=== PATIENT | male | born 1995 | race African-American/Black ===

== ENCOUNTER 2021-05-09 10:10 | Emergency (ER) | payer SELFPAY ==
--- NOTE | 2021-05-09 10:43 | EDM.PDOC ---
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, woke at 5:30a as usual, felt okay, he changed the diaper and gave a bottle to his son as he usual does, did not shower, says he felt weak and went to [facility] and drank OJ he came back to bedroom still feeling weak and "passed out", his fiancee awoke and came to his side, he was on the floor, says he felt okay, no pain, still lightheaded, no incontinence of B/B he got up but passed out again, he then ate a pancake, sausage and drank a Powerade that his fiancee prepared, as he was still tired he went and took a nap for an hour, when he woke up he still felt weak and came to walk-in clinic where Angela Ahuja redirected him to the ED no alcohol or street drugs no daily meds 3m ago in February he was living in [place] and driving [place] the border to work at a hospital in [place], he checked on his mother daily, she lives in [place], while at her house he had a similar syncopal episode, he was hospitalized for 3d at [facility], says he was told he had dehydration and was told to take a pill once a day which he thinks was some type of water pill. He has not continued to take this pill. No dx other dehydration apparently were made per pt. Pt reports there "is a hx of anemia in my family." - Related Data Allergies Allergy/AdvReac Type Severity Reaction Status Date / Time No Known Allergies Allergy Verified 05/09/21 10:31 Home Meds: Home Meds Multivitamin 1 tab PO DAILY 05/09/21 [History] ED ROS GENERAL - Review of Systems Review Of Systems: See Below Constitutional: Reports: No Symptoms HEENT: Reports: No Symptoms Respiratory: Reports: No Symptoms Cardiovascular: Reports: No Symptoms Endocrine: Reports: No Symptoms GI/Abdominal: Reports: No Symptoms : Reports: No Symptoms Musculoskeletal: Reports: No Symptoms Skin: Reports: No Symptoms Neurological: Reports: Dizziness, Weakness, Other (lightheaded) Psychiatric: Reports: No Symptoms Hematologic/Lymphatic: Reports: No Symptoms Immunologic: Reports: No Symptoms - Physical Exam Exam: See Below Exam Limited By: No Limitations General Appearance: Alert, WD/WN, No Apparent Distress, Other (alert, pleasant, not postictal, ambulates without difficulty, ormal speech) Eye Exam: Bilateral Eye: EOMI, PERRL Ears: Hearing Grossly Normal Nose: Normal Inspection, Normal Mucosa, No Blood Throat/Mouth: Normal Inspection, Normal Lips, Normal Teeth, Normal Gums, Normal Oropharynx, Normal Voice, No Airway Compromise Head Exam: Atraumatic, Normocephalic Neck: Normal Inspection, Supple, Non-Tender, Full Range of Motion. No: Lymphadenopathy (R), Lymphadenopathy (L) Respiratory/Chest: No Respiratory Distress Cardiovascular: Regular Rate, Rhythm, No Edema, No Murmur, Gallop/S4 GI/Abdominal: Normal Bowel Sounds, Soft, Non-Tender, No Organomegaly, No Distention Neuro Exam (Abbreviated): Alert, Oriented, CN II-XII Intact, Normal Cognition, Normal Gait, No Motor/Sensory Deficits Back Exam: Normal Inspection, Full Range of Motion, NT Extremities: Normal Inspection, Normal Range of Motion, Non-Tender, No Pedal Edema, Normal Capillary Refill, Other (thin, skin turgor appears wnl) Psychiatric: Normal Affect, Normal Mood Skin Exam: Warm, Dry, Intact, Normal Color, No Rash Course - Vital Signs Last Recorded V/S: Last Vital Signs Temp 36.4 C 05/09/21 10:10 Pulse 82 05/09/21 10:10 Resp 18 05/09/21 10:10 BP 143/90 H 05/09/21 10:10 Pulse Ox 99 05/09/21 10:10 - Orders/Labs/Meds Orders: Active Orders 24 hr Category Date Time Status EKG Documentation Completion [RC] ASDIRECTED Care 05/09/21 10:34 Ordered C-REACTIVE PROTEIN [CHEM] Stat Lab 05/09/21 10:33 Ordered CBC WITH AUTO DIFF [HEME] Stat Lab 05/09/21 10:33 Ordered COMPREHENSIVE METABOLIC PN,CMP [CHEM] Stat Lab 05/09/21 10:33 Ordered DRUG SCREEN, URINE ALERE [URCHEM] Stat Lab 05/09/21 10:33 Ordered TROPONIN I [CHEM] Stat Lab 05/09/21 10:33 Ordered TSH ULTRASENSITIVE [CHEM] Stat Lab 05/09/21 10:34 Ordered UA W/MICROSCOPIC [URIN] Stat Lab 05/09/21 10:33 Ordered EKG 12 Lead [EK] Routine Ther 05/09/21 10:33 Ordered Sepsis Event Note (ED) - Focused Exam Vital Signs: Vital Signs Temp Pulse Resp BP Pulse Ox 05/09/21 10:10 36.4 C 82 18 143/90 H 99 - My Orders Last 24 Hours: My Active Orders 05/09/21 10:33 C-REACTIVE PROTEIN [CHEM] Stat CBC WITH AUTO DIFF [HEME] Stat COMPREHENSIVE METABOLIC PN,CMP [CHEM] Stat DRUG SCREEN, URINE ALERE [URCHEM] Stat TROPONIN I [CHEM] Stat UA W/MICROSCOPIC [URIN] Stat EKG 12 Lead [EK] Routine 05/09/21 10:34 EKG Documentation Completion [RC] ASDIRECTED TSH ULTRASENSITIVE [CHEM] Stat - Assessment/Plan Last 24 Hours: My Active Orders 05/09/21 10:33 C-REACTIVE PROTEIN [CHEM] Stat CBC WITH AUTO DIFF [HEME] Stat COMPREHENSIVE METABOLIC PN,CMP [CHEM] Stat DRUG SCREEN, URINE ALERE [URCHEM] Stat TROPONIN I [CHEM] Stat UA W/MICROSCOPIC [URIN] Stat EKG 12 Lead [EK] Routine 05/09/21 10:34 EKG Documentation Completion [RC] ASDIRECTED TSH ULTRASENSITIVE [CHEM] Stat
--- NOTE | 2021-05-09 11:24 | EDM.PDOC ---
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, woke at 5:30a as usual, felt okay, he changed the diaper and gave a bottle to his son as he usual does, did not shower, says he felt weak and went to [facility] and drank OJ he came back to bedroom still feeling weak and "passed out", his fiancee awoke and came to his side, he was on the floor, says he felt okay, no pain, still lightheaded, no incontinence of B/B he got up but passed out again, he then ate a pancake, sausage and drank a Powerade that his fiancee prepared, as he was still tired he went and took a nap for an hour, when he woke up he still felt weak and came to walk-in clinic where Angela Ahuja redirected him to the ED no alcohol or street drugs no daily meds 3m ago in February he was living in [place] and driving [place] the border to work at a hospital in [place], he checked on his mother daily, she lives in [place], while at her house he had a similar syncopal episode, he was hospitalized for 3d at [facility], says he was told he had dehydration and was told to take a pill once a day which he thinks was some type of water pill. He has not continued to take this pill. No dx other dehydration apparently were made per pt. Pt reports there "is a hx of anemia in my family." - Related Data Allergies Allergy/AdvReac Type Severity Reaction Status Date / Time No Known Allergies Allergy Verified 05/09/21 10:31 Home Meds: Home Meds Multivitamin 1 tab PO DAILY 08/01/21 [History] Past Medical History Hematologic History: Reports: Iron Deficiency Social & Family History - Family History Family Medical History: No Pertinent Family History - Tobacco Use Tobacco Use Status *Q: Never Tobacco User - Caffeine Use Caffeine Use: Reports: Coffee - Recreational Drug Use Recreational Drug Use: No ED ROS GENERAL - Review of Systems Review Of Systems: See Below Constitutional: Reports: No Symptoms HEENT: Reports: No Symptoms Respiratory: Reports: No Symptoms Cardiovascular: Reports: No Symptoms Endocrine: Reports: No Symptoms GI/Abdominal: Reports: No Symptoms : Reports: No Symptoms Musculoskeletal: Reports: No Symptoms Skin: Reports: No Symptoms Neurological: Reports: Dizziness, Syncope Psychiatric: Reports: No Symptoms Hematologic/Lymphatic: Reports: No Symptoms Immunologic: Reports: No Symptoms ED EXAM, GENERAL - Physical Exam Exam: See Below Free Text/Narrative:: c/o passing out twice pt states he passed out 2x this AM, felt "weak" and "low energy" and lightheaded each time, does not remember falling, no pain, no VELA/CP/abd pain, no n/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, 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, woke at 5:30a as usual, felt okay, he changed the diaper and gave a bottle to his son as he usual does, did not shower, says he felt weak and went to [facility] and drank OJ he came back to bedroom still feeling weak and "passed out", his fiancee awoke and came to his side, he was on the floor, says he felt okay, no pain, still lightheaded, no incontinence of B/B he got up but passed out again, he then ate a pancake, sausage and drank a Powerade that his fiancee prepared, as he was still tired he went and took a nap for an hour, when he woke up he still felt weak and came to walk-in clinic where Angela Ahuja redirected him to the ED no alcohol or street drugs no daily meds 3m ago in February he was living in [place] and driving across the border to work at a hospital in [place], he checked on his mother daily, she lives in [place], while at her house he had a similar syncopal episode, he was hospitalized for 3d at [facility], says he was told he had dehydration and was told to take a pill once a day which he thinks was some type of water pill. He has not continued to take this pill. No dx other dehydration apparently were made per pt. Pt reports there "is a hx of anemia in my family." Exam Limited By: No Limitations General Appearance: Alert, WD/WN, No Apparent Distress, Other (alert, pleasant, not postictal, ambulates without difficulty, ormal speech) Ears: Hearing Grossly Normal Nose: Normal Inspection, Normal Mucosa, No Blood Neck: Normal Inspection, Supple, Non-Tender, Full Range of Motion. No: Lymphadenopathy (R), Lymphadenopathy (L) Respiratory/Chest: No Respiratory Distress Cardiovascular: Regular Rate, Rhythm, No Edema, No Murmur, Gallop/S4 GI/Abdominal: Normal Bowel Sounds, Soft, Non-Tender, No Organomegaly, No Distention Back Exam: Normal Inspection, Full Range of Motion, NT Extremities: Normal Inspection, Normal Range of Motion, Non-Tender, No Pedal Edema, Normal Capillary Refill, Other (thin, skin turgor appears wnl) Neurological: Alert, Oriented, CN II-XII Intact, Normal Cognition, Normal Gait, No Motor/Sensory Deficits Psychiatric: Normal Affect, Normal Mood Skin Exam: Warm, Dry, Intact, Normal Color, No Rash #1 Interpretation EKG Date: 05/09/21 Time: 10:43 Rhythm: NSR Rate (Beats/Min): 77 [place]: Normal P-Wave: Present QRS: Normal ST-T: Normal QT: Normal Comparison: NA - No Prior EKG EKG Interpretation Comments: wnl for age, no acute/ischemic changes Course - Vital Signs Last Recorded V/S: Last Vital Signs Temp 36.4 C 05/09/21 10:10 Pulse 82 05/09/21 10:10 Resp 18 05/09/21 10:10 BP 143/90 H 05/09/21 10:10 Pulse Ox 99 05/09/21 10:10 - Orders/Labs/Meds Orders: Active Orders 24 hr Category Date Time Status EKG Documentation Completion [RC] ASDIRECTED Care 05/09/21 10:34 Ordered C-REACTIVE PROTEIN [CHEM] Stat Lab 05/09/21 10:33 Ordered CBC WITH AUTO DIFF [HEME] Stat Lab 05/09/21 10:33 Ordered COMPREHENSIVE METABOLIC PN,CMP [CHEM] Stat Lab 05/09/21 10:33 Ordered DRUG SCREEN, URINE ALERE [URCHEM] Stat Lab 05/09/21 10:33 Ordered TROPONIN I [CHEM] Stat Lab 05/09/21 10:33 Ordered TSH ULTRASENSITIVE [CHEM] Stat Lab 05/09/21 10:34 Ordered UA W/MICROSCOPIC [URIN] Stat Lab 05/09/21 10:33 Ordered EKG 12 Lead [EK] Routine Ther 05/09/21 10:33 Ordered - Re-Assessments/Exams Free Text/Narrative Re-Assessment/Exam: 05/09/21 12:27 labs all neg, EKG neg, not orthostatic records from [facility] reviewed, pt had RLQ pain and appendolith on CT, SG 1.020 with no ketones, urine drug screen neg, did not have syncope doubt true syncope here, pt not dehydrated, likely was exhausted from busy schedule, states he did get to bed at 10p last night, pt did agree to f/u with PCP Departure - Departure Time of Disposition: 12:25 Disposition: Home, Self-Care 01 Condition: Good Clinical Impression: Syncope, Exhaustion - Discharge Information *PRESCRIPTION DRUG MONITORING PROGRAM REVIEWED*: Not Applicable *COPY OF PRESCRIPTION DRUG MONITORING REPORT IN PATIENT BASILIO: Not Applicable Forms: ED Department Discharge, ED Return to Work/School Form Additional Instructions: Maintain fluids. Get adequate rest today. See a primary care provider in 2-3 days for further recommendations. Sepsis Event Note (ED) - Evaluation Sepsis Screening Result: No Definite Risk - Focused Exam Vital Signs: Vital Signs Temp Pulse Resp BP Pulse Ox 05/09/21 10:10 36.4 C 82 18 143/90 H 99 - My Orders Last 24 Hours: My Active Orders 05/09/21 10:33 C-REACTIVE PROTEIN [CHEM] Stat CBC WITH AUTO DIFF [HEME] Stat COMPREHENSIVE METABOLIC PN,CMP [CHEM] Stat DRUG SCREEN, URINE ALERE [URCHEM] Stat TROPONIN I [CHEM] Stat UA W/MICROSCOPIC [URIN] Stat EKG 12 Lead [EK] Routine 05/09/21 10:34 EKG Documentation Completion [RC] ASDIRECTED TSH ULTRASENSITIVE [CHEM] Stat - Assessment/Plan Last 24 Hours: My Active Orders 05/09/21 10:33 C-REACTIVE PROTEIN [CHEM] Stat CBC WITH AUTO DIFF [HEME] Stat COMPREHENSIVE METABOLIC PN,CMP [CHEM] Stat DRUG SCREEN, URINE ALERE [URCHEM] Stat TROPONIN I [CHEM] Stat UA W/MICROSCOPIC [URIN] Stat EKG 12 Lead [EK] Routine 05/09/21 10:34 EKG Documentation Completion [RC] ASDIRECTED TSH ULTRASENSITIVE [CHEM] Stat
== END 2021-05-09 12:33 | disposition home or self-care (01) ==
LOC: FB.ED 10:10
DX: R55 Syncope and collapse (principal); R53.83 Other fatigue
CPT/HCPCS: 36415; 80053; 80305-QW; 81001; 84443; 84484; 85025; 86140; 93005; 99285-25

== ENCOUNTER 2021-07-11 21:27 | Emergency (ER) | payer BC ==
--- NOTE | 2021-07-11 22:00 | EDM.PDOC ---
ED HPI GENERAL MEDICAL PROBLEM - General Chief Complaint: Upper Extremity Injury/Pain Stated Complaint: SMASHED HAND IN ELEVATOR Time Seen by Provider: 07/11/21 21:45 Source of Information: Reports: Patient, RN History Limitations: Reports: No Limitations - History of Present Illness INITIAL COMMENTS - FREE TEXT/NARRATIVE: 26 yo male got his L hand in a closing elevator tonight. Here for eval of hand pain. No tx prior to arrival. 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 Left Hand Pain Score (Numeric/FACES): 10 - Related Data Allergies Allergy/AdvReac Type Severity Reaction Status Date / Time No Known Allergies Allergy Verified 05/09/21 10:31 Home Meds: Home Meds Multivitamin 1 tab PO DAILY 05/09/21 [History] Past Medical History Hematologic History: Reports: Iron Deficiency Social & Family History - Family History Family Medical History: No Pertinent Family History - Caffeine Use Caffeine Use: Reports: Coffee Review of Systems - Review of Systems Review Of Systems: See Below Constitutional: Reports: No Symptoms Musculoskeletal: Reports: Hand Pain (Left) Skin: Reports: No Symptoms Neurological: Reports: No Symptoms ED EXAM, GENERAL - Physical Exam Exam: See Below Exam Limited By: No Limitations General Appearance: Alert, WD/WN, No Apparent Distress Extremities: Normal Inspection, Normal Range of Motion, No Pedal Edema. No: Non-Tender, Limited Range of Motion, Increased Warmth, Redness Neurological: Alert, Oriented, CN II-XII Intact, Normal Cognition, No Motor/Sensory Deficits Psychiatric: Normal Affect, Normal Mood Skin Exam: Warm, Dry, Intact, Normal Color, No Rash Course - Vital Signs Last Recorded V/S: Last Vital Signs Temp 36.8 C 07/11/21 21:27 Pulse 84 07/11/21 21:27 Resp 18 07/11/21 21:27 BP 149/94 H 07/11/21 21:27 Pulse Ox 97 07/11/21 21:27 - Orders/Labs/Meds Orders: Active Orders 24 hr Category Date Time Status Hand Comp Min 3V Lt [CR] Stat Exams 07/11/21 21:37 Ordered - Radiology Interpretation Free Text/Narrative:: L hand X-ray-neg Departure - Departure Time of Disposition: 21:59 Disposition: Home, Self-Care 01 Condition: Good Clinical Impression: Contusion of left hand Qualifiers: Encounter type: initial encounter Qualified Code(s): S60.222A - Contusion of left hand, initial encounter - Discharge Information *PRESCRIPTION DRUG MONITORING PROGRAM REVIEWED*: Not Applicable *COPY OF PRESCRIPTION DRUG MONITORING REPORT IN PATIENT BASILIO: Not Applicable Instructions: Hand Contusion Referrals: Reji Becker MD [Primary Care Provider] - Additional Instructions: Ibuprofen and/or acetaminophen as needed for pain relief. Rest the hand if possible and recheck if not improving in a week. Sepsis Event Note (ED) - Focused Exam Vital Signs: Vital Signs Temp Pulse Resp BP Pulse Ox 07/11/21 21:27 36.8 C 84 18 149/94 H 97 - My Orders Last 24 Hours: My Active Orders 07/11/21 21:37 Hand Comp Min 3V Lt [CR] Stat - Assessment/Plan Last 24 Hours: My Active Orders 07/11/21 21:37 Hand Comp Min 3V Lt [CR] Stat
--- NOTE | 2021-07-12 13:38 | CR ---
LEFT HAND INDICATION: Smashed in the elevator. TECHNIQUE: Three views of the left hand were obtained 07/11/21 - no comparison. FINDINGS: An acute fracture, dislocation or other significant bone or joint abnormality was not identified. If symptoms persist - if occult fracture site is suspected clinically, examination in 10 to 14 days may be helpful. [facility]
== END 2021-07-11 22:25 | disposition home or self-care (01) ==
LOC: FB.ED 21:27
DX: S60.222A Contusion of left hand, initial encounter (principal); W23.0XXA Caught, crushed, jammed, or pinched between moving objects, initial encounter
CPT/HCPCS: 73130-LT; 99283-25

== ENCOUNTER 2021-08-09 22:50 | Emergency (ER) | payer BC ==
--- NOTE | 2021-08-09 23:20 | EDM.PDOC ---
ED HPI GENERAL MEDICAL PROBLEM - General Stated Complaint: ABD PAIN/VOMITING Time Seen by Provider: 08/09/21 23:12 - History of Present Illness INITIAL COMMENTS - FREE TEXT/NARRATIVE: 26-year-old gentleman came to the emergency department for evaluation of abdominal pain, nausea, vomiting. He was recently seen by his primary care provider for back pain and treated with steroid taper pack and muscle relaxant, approximately 1/2 weeks ago. However, today he suddenly began to experience significant right lower quadrant pain, nausea, and vomiting. He took a nausea pill at home. He is not sure if it was prescription or [id number]. It did not work and he continues to have difficulty with vomiting. He is otherwise healthy and has no acute complaints. abdominal Pain Score (Numeric/FACES): 7 - Related Data Allergies Allergy/AdvReac Type Severity Reaction Status Date / Time No Known Allergies Allergy Verified 08/09/21 23:54 Home Meds: Home Meds Multivitamin 1 tab PO DAILY 05/09/21 [History] Cyclobenzaprine [Flexeril] 10 mg PO ASDIRECTED 08/09/21 [History] methylPREDNISolone [Methylprednisolone] 4 mg PO ASDIRECTED 08/09/21 [History] Past Medical History Respiratory History: Reports: Asthma Hematologic History: Reports: Iron Deficiency Social & Family History - Family History Family Medical History: No Pertinent Family History - Caffeine Use Caffeine Use: Reports: None ED ROS GENERAL - Review of Systems Review Of Systems: See Below Constitutional: Reports: No Symptoms HEENT: Reports: No Symptoms Respiratory: Reports: No Symptoms Cardiovascular: Reports: No Symptoms Endocrine: Reports: No Symptoms GI/Abdominal: Reports: Abdominal Pain, Nausea, Vomiting : Reports: No Symptoms Musculoskeletal: Reports: Back Pain Skin: Reports: No Symptoms Neurological: Reports: No Symptoms Psychiatric: Reports: No Symptoms Hematologic/Lymphatic: Reports: No Symptoms Immunologic: Reports: No Symptoms ED EXAM, GI/ABD - Physical Exam Exam: See Below Exam Limited By: No Limitations General Appearance: Alert, Mild Distress Head: Atraumatic, Normocephalic Respiratory/Chest: No Respiratory Distress, Lungs Clear Cardiovascular: Regular Rate, Rhythm, No Murmur GI/Abdominal Exam: Normal Bowel Sounds, Rebound, Tender, Other (Patient has tenderness to palpation in the right lower quadrant both with abdominal muscles relaxed and flexed, heeltap is negative, jump test is positive, no obvious mass, edema, ecchymosis) Back Exam: CVA Tenderness (R), CVA Tenderness (L) Extremities: Normal Inspection Neurological: Alert, Oriented, CN II-XII Intact, Normal Cognition, Normal Gait Psychiatric: Normal Affect, Normal Mood Skin Exam: Warm, Dry Course - Vital Signs Text/Narrative:: Review of labs grossly within normal limits. Patient had mild hypokalemia likely secondary to vomiting and/or diarrhea. CT abdomen and pelvis negative for acute pathology. Patient likely has viral gastroenteritis. Last Recorded V/S: Last Vital Signs Temp 36.6 C 08/10/21 01:15 Pulse 86 08/10/21 01:15 Resp 18 08/10/21 01:15 BP 128/72 08/10/21 01:15 Pulse Ox 100 08/10/21 01:15 - Orders/Labs/Meds Orders: Active Orders 24 hr Category Date Time Status Abdomen Pelvis w Cont [CT] Stat Exams 08/10/21 00:04 Taken UA W/MICROSCOPIC [URIN] Stat Lab 08/09/21 23:13 Ordered Labs: Laboratory Tests 08/09/21 08/09/21 08/09/21 Range/Units 23:25 23:25 23:25 WBC 9.5 (3.2-10.1) x10-3/uL RBC 5.80 (3.90-5.90) x10(6)uL Hgb 15.5 (12.9-17.7) g/dL Hct 47.3 (38.3-50.1) % MCV 81.6 (80.8-98.7) fL MCH 26.7 L (27.0-33.3) pg MCHC 32.7 (28.7-35.3) g/dL RDW 13.1 (12.4-15.0) % Plt Count 164 (117-477) x10(3)uL MPV 7.4 (6.7-11.0) fL Neut % (Auto) 81.7 H (40.3-71.8) % Lymph % (Auto) 10.3 L (15.8-45.3) % [place] % (Auto) 5.7 (5.5-15.2) % Eos % (Auto) 1.6 (0.1-6.8) % Baso % (Auto) 0.7 (0.3-3.8) % Neut # (Auto) 7.8 H (1.7-6.9) x10-3/uL Lymph # (Auto) 1.0 (0.5-4.5) x10-3/uL [place] # (Auto) 0.5 (0.0-1.2) x10-3/uL Eos # (Auto) 0.2 (0.0-0.6) x10-3/uL Baso # (Auto) 0.1 (0.0-0.3) x10-3/uL Sodium 136 (135-145) mmol/L Potassium 3.3 L (3.5-5.3) mmol/L Chloride 101 (100-110) mmol/L Carbon Dioxide 27 (21-32) mmol/L BUN 11 (7-18) mg/dL Creatinine 1.0 (0.70-1.30) mg/dL Est Cr Clr Drug Dosing 103.22 mL/min Estimated GFR (MDRD) > 60 (>60) BUN/Creatinine Ratio 11.0 (9-20) Glucose 119 H (80-116) mg/dL Calcium 9.3 (8.6-10.2) mg/dL Total Bilirubin 0.7 (0.1-1.3) mg/dL AST 25 D (5-25) IU/L ALT 40 H D (12-36) U/L Alkaline Phosphatase 69 (56-112) IU/L C-Reactive Protein > 0.2 L (0.5-0.9) mg/dL Total Protein 7.7 (6.0-8.0) g/dL Albumin 4.2 (3.5-5.2) g/dL Globulin 3.5 g/dL Albumin/Globulin Ratio 1.2 Meds: Medications Discontinued Medications Generic Name Dose Route Start Last Admin Trade Name Freq PRN Reason Stop Dose Admin Lactated Ringer's 1,000 mls @ 999 mls/hr 08/10/21 00:21 08/10/21 00:20 Ringers, Lactated IV 08/10/21 01:21 999 mls/hr BOLUS ONE Administration Iopamidol 75 ml 08/10/21 00:16 08/10/21 00:27 Iopamidol 755 Mg/Ml 75 Ml Bottle IV 08/10/21 00:17 75 ml ONETIME ONE Administration Departure - Departure Time of Disposition: 01:30 Disposition: Home, Self-Care 01 Condition: Good Clinical Impression: Viral gastroenteritis - Discharge Information *PRESCRIPTION DRUG MONITORING PROGRAM REVIEWED*: Not Applicable *COPY OF PRESCRIPTION DRUG MONITORING REPORT IN PATIENT BASILIO: Not Applicable Instructions: Gastritis, Adult, [id number] Referrals: Reji Becker MD [Primary Care Provider] - Forms: ED Department Discharge, ED Return to Work/School Form Additional Instructions: Follow up with your primary care provider as needed. CT was negative for everything including appendicitis Drink plenty of fluids. Sepsis Event Note (ED) - Focused Exam Vital Signs: Vital Signs Temp Pulse Resp BP Pulse Ox 08/10/21 01:15 36.6 C 86 18 128/72 100 08/09/21 23:05 36.6 C 100 18 142/81 H 100 - My Orders Last 24 Hours: My Active Orders 08/09/21 23:13 UA W/MICROSCOPIC [URIN] Stat 08/10/21 00:04 Abdomen Pelvis w Cont [CT] Stat - Assessment/Plan Last 24 Hours: My Active Orders 08/09/21 23:13 UA W/MICROSCOPIC [URIN] Stat 08/10/21 00:04 Abdomen Pelvis w Cont [CT] Stat
[2021-08-10] MEDS ORDERED: Iopamidol 755 Mg/ML 75 ML Bottle IV ONE (00:16)
[2021-08-10] MEDS ORDERED: Lactated Ringers 1,000 ML IV ONE (00:21)
== END 2021-08-10 01:30 | disposition home or self-care (01) ==
LOC: FB.ED 22:50
DX: A08.4 Viral intestinal infection, unspecified (principal); J45.909 Unspecified asthma, uncomplicated
CPT/HCPCS: 36415; 74177; 80053; 85025; 86140; 99284; J7120; Q9967

== ENCOUNTER 2021-10-18 17:29 | Emergency (ER) | payer SELFPAY ==
[2021-10-18] MEDS ORDERED: LORazepam 2 MG/ML SDV IM STA (17:42)
--- NOTE | 2021-10-18 17:48 | EDM.PDOC ---
ED HPI GENERAL MEDICAL PROBLEM - General Stated Complaint: SOB Time Seen by Provider: 10/18/21 17:30 Source of Information: Reports: Patient History Limitations: Reports: No Limitations - History of Present Illness INITIAL COMMENTS - FREE TEXT/NARRATIVE: Patient presented to the ED with EMS because of dyspnea, tingling of face and arms while at work. There is no fever, chills, cough or cold symptoms. he has a history of asthma but didn't have asthma attack for years. - Related Data Allergies Allergy/AdvReac Type Severity Reaction Status Date / Time No Known Allergies Allergy Verified 08/09/21 23:54 Home Meds: Home Meds Multivitamin 1 tab PO DAILY 05/09/21 [History] Cyclobenzaprine [Flexeril] 10 mg PO ASDIRECTED 08/09/21 [History] methylPREDNISolone [Methylprednisolone] 4 mg PO ASDIRECTED 08/09/21 [History] hydrOXYzine HCL [Atarax] 25 mg PO Q8H PRN #15 tab 10/18/21 [Rx] Past Medical History Respiratory History: Reports: Asthma Hematologic History: Reports: Iron Deficiency Social & Family History - Family History Family Medical History: No Pertinent Family History - Caffeine Use Caffeine Use: Reports: None ED ROS GENERAL - Review of Systems Review Of Systems: See Below Constitutional: Reports: No Symptoms HEENT: Reports: No Symptoms Respiratory: Reports: No Symptoms Cardiovascular: Reports: No Symptoms Endocrine: Reports: No Symptoms GI/Abdominal: Reports: No Symptoms : Reports: No Symptoms Musculoskeletal: Reports: No Symptoms Skin: Reports: No Symptoms Neurological: Reports: No Symptoms Psychiatric: Reports: No Symptoms ED EXAM, GENERAL - Physical Exam Exam: See Below Exam Limited By: No Limitations General Appearance: Alert, No Apparent Distress Eye Exam: Bilateral Eye: PERRL Ears: Normal External Exam, Normal Canal Nose: Normal Inspection, Normal Mucosa, No Blood Throat/Mouth: Normal Inspection, Normal Lips, Normal Teeth, Normal Gums, Normal Oropharynx, Normal Voice Head: Atraumatic, Normocephalic Neck: Normal Inspection, Supple, Non-Tender, Full Range of Motion Respiratory/Chest: No Respiratory Distress, Lungs Clear, Normal Breath Sounds, No Accessory Muscle Use, Chest Non-Tender Cardiovascular: Normal Peripheral Pulses, Regular Rate, Rhythm, No Edema, No Gallop, No JVD, No Murmur, No Rub GI/Abdominal: Normal Bowel Sounds, Soft, Non-Tender, No Organomegaly, No Distention, No Abnormal Bruit Back Exam: Normal Inspection, Full Range of Motion Extremities: Normal Inspection, Normal Range of Motion Course - Vital Signs Text/Narrative:: ativan - Orders/Labs/Meds Meds: Medications Discontinued Medications Generic Name Dose Route Start Last Admin Trade Name Freq PRN Reason Stop Dose Admin Lorazepam 1 mg 10/18/21 17:42 Lorazepam 2 Mg/Ml Sdv IM 10/18/21 17:43 NOW STA Departure - Departure Time of Disposition: 18:00 Disposition: Home, Self-Care 01 Condition: Good Clinical Impression: Anxiety attack - Discharge Information Prescriptions: hydrOXYzine HCL [Atarax] 25 mg PO Q8H PRN #15 tab PRN Reason: Anxiety Instructions: Panic Attack, [id number] Additional Instructions: Please read discharge instructions on anxiety attack Take hydroxyzine 25 mg every 8 hours as needed for anxiety Follow up as needed
== END 2021-10-18 18:35 | disposition home or self-care (01) ==
LOC: FB.ED 17:29
DX: F41.9 Anxiety disorder, unspecified (principal); J45.909 Unspecified asthma, uncomplicated
CPT/HCPCS: 96372; 99283; J2060

== ENCOUNTER 2022-04-18 20:29 | Emergency (ER) | payer BC | END 2022-04-18 21:00 | disposition home or self-care (01) | LOC: FB.ED 20:29 | DX: F41.0 Panic disorder [episodic paroxysmal anxiety] (principal); Z79.899 Other long term (current) drug therapy | CPT/HCPCS: 99284 ==

== ENCOUNTER 2023-08-21 16:31 | Emergency (ER) | payer OTHER, BC | END 2023-08-21 19:35 | disposition home or self-care (01) | LOC: FB.ED 16:31 | DX: R07.89 Other chest pain (principal); J45.909 Unspecified asthma, uncomplicated; W20.8XXA Other cause of strike by thrown, projected or falling object, initial encounter; Y92.89 Other specified places as the place of occurrence of the external cause; Y99.0 Civilian activity done for income or pay | CPT/HCPCS: 71101-LT; 99282; 99284 ==

== ENCOUNTER 2024-05-08 16:40 | Emergency (ER) | payer BC, OTHER | END 2024-05-08 18:50 | disposition home or self-care (01) | LOC: FB.ED 16:40 | DX: S06.0X0A Concussion without loss of consciousness, initial encounter (principal); Z87.891 Personal history of nicotine dependence; X58.XXXA Exposure to other specified factors, initial encounter | CPT/HCPCS: 70450; 99283 ==